=== PATIENT | male | born 1970 | race Caucasian/White ===

== ENCOUNTER 2020-05-09 20:02 | Inpatient (IN) | payer OTHER ==
[~2020-05-09] VITALS: Ht 177.8 cm; Wt 77.1 kg
--- NOTE | ~2020-05-09 | PROC ---
[address] [address] PROCEDURE REPORT Name: CHASTITY MORALES Room: [address] ADM IN .R.#: [id number] Admission: 05/09/20 Attend Phys: Selwyn Donnelly MD Discharge: Date of : 68 Report #: [id number] THIS REPORT FOR: //name// cc: Claudine Collins MD, Teresa MD ~ THIS REPORT FOR: //name// For GI report, please see the Provation report in Perceptive 7 content. By: 1346Medical Records Staff DHARMESH /TANJA
[2020-05-09 20:09] VITALS: BP 124/81
[2020-05-09] MEDS ORDERED: LIPITOR40 MG PO (20:13)
[2020-05-09] MEDS ORDERED: PEPCID AC20 MG PO (20:13)
[2020-05-09 20:44] LABS: ABSOLUTE EOSINOPHILS 0.1 thou/uL (0.0-0.7); ABSOLUTE LYMPHOCYTES 1.2 thou/uL (0.8-5.3); ABSOLUTE MONOCYTES 0.8 thou/uL (0.0-1.2); ABSOLUTE NEUTROPHILS 2.8 thou/uL (1.6-8.1); BASOPHILS 0.6 %; EOSINOPHILS 1.3 %; HEMOGLOBIN 14.7 gm/dL (14.0-18.0); LYMPHOCYTES 23.5 %; MCH 29.4 pg (26.0-34.0); MCHC 34.1 g/dL (28.0-37.0); MCV 86.3 fL (80.0-100.0); MONOCYTES 17.2 %; MPV 8.3 fl. (7.2-11.1); NUCLEATED RBCS 0 /100WBC; PLATELET COUNT* 252 thou/uL (150-400); POLYS 57.4 %; RBC 4.99 mil/uL (4.50-6.00); RDW-CV 13.6 % (10.5-14.5); URINE BILIRUBIN NEGATIVE (Negative); URINE BLOOD NEGATIVE (Negative); URINE CLARITY CLEAR; URINE COLOR YELLOW; URINE GLUCOSE-RANDOM NEGATIVE (Negative); URINE KETONES NEGATIVE (Negative); URINE LEUKOCYTES-REFLEX NEGATIVE (Negative); URINE NITRITE-REFLEX NEGATIVE (Negative); URINE PROTEIN NEGATIVE (Negative); URINE SPECIFIC GRAVITY 1.025 (1.005-1.030); URINE UROBILINOGEN 0.2 E.U./dl (0.2-1.0); WBC 4.9 thou/uL (4.0-11.0)
[2020-05-09 20:52] LABS: CALCIUM 8.9 mg/dL (8.5-10.1); CREATININE 1.2 mg/dL (0.6-1.3); POTASSIUM 3.7 mmol/L (3.5-5.1)
[2020-05-09 20:57] LABS: ALBUMIN 3.2 g/dL (3.4-5.0); TOTAL BILIRUBIN 0.5 mg/dL (<0.1-1.0)
[2020-05-09 23:39] VITALS: BP 125/78
[2020-05-09 23:55] VITALS: BP 139/83
[2020-05-10 07:50] VITALS: BP 113/87
--- NOTE | 2020-05-10 09:39 | EKG ---
[place] [address] ELECTROCARDIOGRAM REPORT Name: CHASTITY MORALES Room: [address] ADM IN [facility].#: [id number] Admission: 05/09/20 Attend Phys: Selwyn Donnelly, Discharge: Date of : 68 Date of Service: 05/09/202102 Report #: [id number] THIS REPORT FOR: //name// [facility] ED Test Date: 2020-05-09 Test Time: 21:03:29 Pat Name: CHASTITY MORALES Department: Room: [facility] Gender: M [employer] Instructor: ROGER : 1970 Requested By: Yovanny Ballard Order Number: [id number] MD: Pito Jordan Measurements Intervals [place] Rate: 69 P: 52 VA: 163 QRS: 12 QRSD: 74 T: 9 QT: 390 QTc: 418 Interpretive Statements Sinus rhythm Probable left atrial enlargement No previous ECG available for comparison Electronically Signed On 05-10-2020 9:39:21 CDT by Pito Jordan [email or web address] <ELECTRONICALLY SIGNED> By: Pito Jordan MD, [facility] 05/10/20 0939 02 02 Pito Jordan MD, [facility] /EPI
[2020-05-10 15:53] VITALS: BP 127/87
[2020-05-11 00:11] VITALS: BP 127/87
[2020-05-11 03:00] VITALS: BP 101/56
[2020-05-11 04:36] LABS: HEMATOCRIT 39.5 % (42.0-52.0); HEMOGLOBIN 13.5 gm/dL (14.0-18.0); MCH 29.3 pg (26.0-34.0); MCHC 34.2 g/dL (28.0-37.0); MCV 85.6 fL (80.0-100.0); MPV 8.5 fl. (7.2-11.1); NUCLEATED RBCS 0 /100WBC; PLATELET COUNT* 278 thou/uL (150-400); RBC 4.62 mil/uL (4.50-6.00); WBC 9.3 thou/uL (4.0-11.0)
[2020-05-11 05:01] LABS: CALCIUM 9.3 mg/dL (8.5-10.1); CREATININE 1.1 mg/dL (0.6-1.3); POTASSIUM 3.8 mmol/L (3.5-5.1); TOTAL BILIRUBIN 0.4 mg/dL (<0.1-1.0); TOTAL PROTEIN 6.5 g/dL (6.4-8.2)
[2020-05-11 05:43] LABS: ESR (SEDRATE) 18 mm/hr (0-20)
[2020-05-11 06:00] LABS: ABSOLUTE LYMPHOCYTES 2.8 thou/uL (0.8-5.3); ABSOLUTE MONOCYTES 1.1 thou/uL (0.0-1.2); ABSOLUTE NEUTROPHILS 5.4 thou/uL (1.6-8.1); PLATELET ESTIMATE ADEQUATE
[2020-05-11 06:01] LABS: ANISOCYTOSIS 1+; POIKILOCYTOSIS 1+
[2020-05-11 07:20] VITALS: BP 134/88
[2020-05-11 13:35] VITALS: BP 134/91
[2020-05-11 16:35] VITALS: BP 136/76
[2020-05-11] MEDS ORDERED: AZITHROMYCIN 2250 MG PO (18:00)
[2020-05-11 20:00] VITALS: BP 115/75
[2020-05-12 04:31] LABS: ABSOLUTE EOSINOPHILS 0.1 thou/uL (0.0-0.7); ABSOLUTE LYMPHOCYTES 2.7 thou/uL (0.8-5.3); ABSOLUTE MONOCYTES 0.8 thou/uL (0.0-1.2); BASOPHILS 0.5 %; HEMATOCRIT 37.2 % (42.0-52.0); HEMOGLOBIN 12.7 gm/dL (14.0-18.0); LYMPHOCYTES 35.7 %; MCH 29.3 pg (26.0-34.0); MCHC 34.1 g/dL (28.0-37.0); MONOCYTES 9.9 %; MPV 8.4 fl. (7.2-11.1); NUCLEATED RBCS 0 /100WBC; PLATELET COUNT* 254 thou/uL (150-400); POLYS 52.9 %; RBC 4.33 mil/uL (4.50-6.00); WBC 7.6 thou/uL (4.0-11.0)
[2020-05-12 04:48] LABS: ALBUMIN 2.8 g/dL (3.4-5.0); CALCIUM 8.5 mg/dL (8.5-10.1); POTASSIUM 4.2 mmol/L (3.5-5.1); TOTAL BILIRUBIN 0.3 mg/dL (<0.1-1.0); TOTAL PROTEIN 5.8 g/dL (6.4-8.2)
[2020-05-12 08:10] VITALS: BP 118/78
[2020-05-12 08:36] LABS: ALBUMIN 2.8 g/dL (3.4-5.0); DIRECT BILIRUBIN 0.1 mg/dL (<0.1-0.3); TOTAL BILIRUBIN 0.3 mg/dL (<0.1-1.0); TOTAL PROTEIN 5.9 g/dL (6.4-8.2)
[2020-05-12 13:20] VITALS: BP 118/78
[2020-05-12 13:39] VITALS: BP 118/78
[2020-05-12 21:06] LABS: IgG 508 mg/dL (603-1613); IgM 107 mg/dL (20-172)
--- NOTE | 2020-05-13 07:38 | CON ---
[address] [address] CONSULTATION Name: CHASTITY MORALES Room: [address] IN ..#: [id number] Admission: 05/09/20 Attend Phys: Selwyn Donnelly MD Discharge: 05/12/20 Date of : 68 Report #: [id number] THIS REPORT FOR: //name// cc: Claudine Collins MD, Teresa MD ~ THIS REPORT FOR: //name// CC: Selwyn Collins MD DICTATED BY: Angelic Sanderson [facility] DATE OF SERVICE: 05/10/2020 Please note at the time of this dictation, the patient was seen and physically examined by myself. REASON FOR CONSULTATION: Diarrhea and some abdominal pain. HISTORY OF PRESENT ILLNESS: This is a 50-year-old male who started having symptoms of diarrhea last . He states he was having several loose stools a day and had some abdominal cramping, but no nausea or vomiting. 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 Over the weekend, he started running a fever up to 101, 102. Still having worsening of his diarrhea. He did not notice any bright red blood or any black. He said it was very loose, almost watery at times several throughout the day. He states it would wake him up at night and he would have urgency with that and some abdominal cramping noted. He denies any nausea or vomiting with this at this time. He has had not much of an appetite and really has not been eaten anything and he said since this all started, he has lost about 5 pounds. He did undergo an EGD and colonoscopy a year ago when he turned 49. At the surgical center, he thinks of [address], cannot recall the name. We will attempt to get with his PCP to find out where that is so we can obtain those records. He states all was good and was diagnosed with some GERD and he has been taking famotidine since that time. He denies being around anybody else who has had any diarrhea. He denies any recent travel or any antibiotic use. ALLERGIES: No known drug allergies. MEDICATIONS FROM HOME: Famotidine and Lipitor. PAST MEDICAL HISTORY: [place] [address] CONSULTATION Name: CHASTITY MORALES Room: [address]#: [id number] Admission: 05/09/20 Attend Phys: Selwyn Donnelly MD Discharge: 05/12/20 Date of : 68 Report #: [id number] PAST SURGICAL HISTORY: Negative. FAMILY HISTORY: Negative for any GI or female cancers. SOCIAL HISTORY: Denies any alcohol, tobacco or illegal drug use. REVIEW OF SYSTEMS: Twelve-point review of systems is essentially negative except what is mentioned in the HPI. PHYSICAL EXAMINATION: VITAL SIGNS: Temperature 36.6, pulse 84, respirations 18, blood pressure 134/83. HEART: Regular rate and rhythm. LUNGS: Clear. ABDOMEN: Soft, positive bowel sounds in all 4 quadrants with just very mild diffuse tenderness noted throughout. LABORATORY DATA: Hemoglobin 14.7, white count is 4.9, platelets 252. GFR 64, total bilirubin 0.5, alkaline phosphatase 169, ALT 110, AST is 72. CT shows diffuse wall thickening from the cecum to the rectum with colonic fat stranding that was noted. IMPRESSION: 1. Diarrhea. 2. Abdominal pain, mild. 3. Abnormal CT, diffuse wall thickening from the cecum to the rectum. 4. Stool urgency and nocturnal. 5. Fevers. PLAN: 1. Colonoscopy tomorrow with Dr. Triana. 2. Enteric pathogens to collect. 3. We will obtain records of his EGD and colonoscopy. 4. Further recommendations to be made after the above have all been noted. Thank you for allowing us to participate in this patient's care. Please do not hesitate to call with any questions in regard to this consult. <ELECTRONICALLY SIGNED> By: Cristian Triana DO 05/13/20 0738 0859 [id number] Triana DO /nt
--- NOTE | 2020-05-13 13:08 | PATH ---
[address] [address] PATHOLOGY RPT PROCEDURE Name: MORALESBERNARDSILVERIO E Room: [address] IN M.R.#: [id number] Admission: 05/09/20 Date of : 68 Discharge: 05/12/20 Report #: [id number] Path Case #: [id number] [facility] Accession Number: [id number] . 01 Material submitted: . PART A: cecum - CECAL BIOPSY FOR PANCOLITIS PART B: ileum - TERMINAL ILEUM BIOPSY PART C: ileo-cecal valve - BIOPSY OF ULCERATED ILEOCECAL VALVE PART D: colon - BIOPSY OF ASCENDING COLON. Modifiers: ascending, ascending PART E: colon - BIOPSY OF TRANSVERSE COLON. Modifiers: transverse PART F: colon - BIOPSY OF DESCENDING COLON. Modifiers: descending PART G: colon - SIGMOID COLON BIOPSY. Modifiers: sigmoid PART H: rectum - RECTAL BIOPSY . 01 Clinician provided ICD-10: K52.9 . 01 Clinical history: . COLITIS . 02 Diagnosis: A, D, E, F, G, and H - Cecal biopsy, biopsy of ascending colon, biopsy of transverse colon, biopsy of descending colon, sigmoid colon biopsy, and rectal biopsy: - Severe active colitis with suggestion of chronic inflammation, negative for granulomas, viral inclusions and dysplasia. See comment. . B. Terminal ileum biopsy: - Mild active ileitis, negative for granulomas, viral inclusions and dysplasia. . C. Biopsy of ulcerated ileocecal valve: - Severe active colitis with ulceration, negative for granulomas, viral inclusions and dysplasia. . (SANTOS:[facility]; 05/13/2020) S 05/13/2020 1141 Local . 02 Comment: All of the colonic mucosal biopsies show severe active inflammation with cryptitis and crypt abscesses, without a pseudomembrane identified and to varying degrees show a suggestion of chronic inflammation with crypt disarray verging on distortion but without definite basal lymphoplasmacytosis. Review of Dr. Triana' procedure report dated 05/11/2020, with addendum, reveals the patient's stool studies to be positive for Campylobacter. The histologic features cannot entirely exclude ulcerative colitis, although it is thought to be unlikely, particularly in light of lacking/definite [place] [address] PATHOLOGY RPT PROCEDURE Name: SILVERIO MORALES Room: [address] DIS IN M.R.#: [id number] Admission: 05/09/20 Date of : 68 Discharge: 05/12/20 Report #: [id number] Path Case #: [id number] histologic findings are consistent with Campylobacter colitis. ([facility]ANTOS:[facility]; 05/13/2020) . 02 Electronically signed: . Alejo Westbrook MD, Pathologist NPI- [id number] . 01 Gross description: . A. Received in formalin labeled "Silverio Morales, cecal biopsy for pancolitis" are multiple gamino-brown soft tissue fragments measuring in aggregate 0.7 x 0.3 x 0.1 cm. The specimen is submitted entirely in A1. . B. Received in formalin labeled "MoralesSilverio, terminal ileum biopsy" are two gamino-brown soft tissue fragments measuring in aggregate 0.5 x 0.4 x 0.1 cm. The specimen is submitted entirely in B1. . C. Received in formalin labeled "Silverio Morales, biopsy of ulcerated ileocecal valve" are multiple gamino-brown soft tissue fragments measuring in aggregate 0.5 x 0.5 x 0.1 cm. The specimen is submitted entirely in C1. . D. Received in formalin labeled "Silverio Morales, biopsy of ascending colon" are multiple gamino-brown soft tissue fragments measuring in aggregate 0.6 x 0.2 x 0.1 cm. The specimen is submitted entirely in D1. . E. Received in formalin labeled "MoralesSilverio, biopsy of transverse colon" are multiple gamino-brown soft tissue fragments measuring in aggregate 0.6 x 0.4 x 0.1 cm. The specimen is submitted entirely in E1. . F. Received in formalin labeled "Silverio Morales, biopsy of descending colon" are multiple gamino-brown soft tissue fragments measuring in aggregate 0.6 x 0.3 x 0.1 cm. The specimen is submitted entirely in F1. . G. Received in formalin labeled "Morales Silverio, sigmoid colon biopsy" are multiple gamino-brown soft tissue fragments measuring in aggregate 0.6 x 0.4 x 0.1 cm. The specimen is submitted entirely in G1. . H. Received in formalin labeled "Morales, Silverio, rectal biopsy" are multiple gamino-brown soft tissue fragments measuring in aggregate 0.6 x 0.5 x 0.1 cm. The specimen is submitted entirely in H1. [place] [place] [facility] 05/12/2020 1153 Local . 02 Pathologist provided ICD-10: K52.9, K63.3 . 02 CPT . 935073, 167618, 658062, 341864, 911742, 757580, 488453, 229018 Specimen Comment: A courtesy copy of this report has been sent to [phone], [phone] Specimen Comment: [id number], [address] [address] PATHOLOGY RPT PROCEDURE Name: SILVERIO MORALES Room: [address]#: [id number] Admission: 05/09/20 Date of : 68 Discharge: 05/12/20 Report #: [id number] Path Case #: [id number] Specimen Comment: Report sent to ,DR JADE / DR JACKSON Performed at: 01 [facility] [address], [place], [place] [id number] MD Blake Berger MD Phone: [phone] Performed at: 02 [facility] [address] , [place], [place] [id number] MD Alejo Westbrook MD Phone: [phone]
[2020-05-13 14:07] LABS: ANA INTERPRETATION Negative (Negative)
== END 2020-05-12 15:30 | disposition home or self-care (01) | DRG 372 ==
LOC: M.ERS 20:02 → M.3W 22:43 → M.TBA-ER 22:43 → M.3W 05-10 00:17
PROVIDERS: Family Medicine; Internal Medicine Gastroenterology; Nurse Practitioner; ADMIT Internal Medicine; ATTEND Internal Medicine
DX: A04.5 Campylobacter enteritis (principal); E44.1 Mild protein-calorie malnutrition; E78.5 Hyperlipidemia, unspecified; K21.9 Gastro-esophageal reflux disease without esophagitis; E86.0 Dehydration; R63.4 Abnormal weight loss; D64.9 Anemia, unspecified; Z20.828 Contact with and (suspected) exposure to other viral communicable diseases; Z68.24 Body mass index [BMI] 24.0-24.9, adult; Z79.899 Other long term (current) drug therapy; Z28.21 Immunization not carried out because of patient refusal